=== PATIENT | male | born 1955 | race Caucasian/White ===

== ENCOUNTER 2019-06-14 10:59 | Day surgery (SDC) | payer BC ==
[~2019-06-14] VITALS: Ht 188 cm; Wt 107.5 kg
[2019-06-14] MEDS ORDERED: ULORIC40 MG PO (11:00)
[2019-06-14] MEDS ORDERED: ASPIRIN E.C. 8181 MG PO (11:00)
[2019-06-14] MEDS ORDERED: PRINIVIL10 MG PO (11:01)
[2019-06-14] MEDS ORDERED: GLUCOPHAGE1000 MG PO (11:02)
[2019-06-14] MEDS ORDERED: CRESTOR5 MG PO (11:02)
[2019-06-14] MEDS ORDERED: NEURONTIN300 MG/CAP PO (11:03)
[2019-06-14 11:11] VITALS: BP 140/85; PULSE 89; TEMP 97.2
[2019-06-14 13:02] VITALS: BP 87/56; PULSE 77; TEMP 97.6
[2019-06-14 13:19] VITALS: BP 90/59; PULSE 78
[2019-06-14 13:30] VITALS: BP 99/72; PULSE 78
[2019-06-14 13:45] VITALS: BP 109/74; PULSE 73
[2019-06-14 14:00] VITALS: BP 106/63; PULSE 72
--- NOTE | 2019-06-14 14:14 | NUR ---
PATIENT RECEIVED DISCHARGE INSTRUCTIONS VERBAL AND WRITTEN. QUESTIONS ANSWERED AND PATIENT VERBALIZED UNDERSTANDING. IV DC'D. DRESSING TO RT LEG C,D,AND I. [facility].
--- NOTE | 2019-06-14 14:40 | NUR ---
PATIENT TO ROOM 6 PER CART ACCOMPANIED BY ANESTHESIA AND ANNRN. MONITORS APPLIED. PATIENT ALERT AND TALKING WITH STAFF. RT LEG ELEVATED ON PILLOW. BLOOD PRESSURE LOW. IV FLUIDS OPEN AND INFUSING. WILL CONTINUE TO MONITOR.
--- NOTE | 2019-06-14 14:42 | NUR ---
BLOOD PRESSURE INCREASING. PATIENT OFFERED DRINK AND FOOD. GIVEN WATER AND JELLO. PATIENT DENIES PAIN AND NAUSEA.
--- NOTE | 2019-06-14 14:44 | NUR ---
BLOOD PRESSURE CONTINUES TO IMPROVE. PATIENT REQUEST MORE WATER AND JELLO. PATIENT CONTINUES TO DENY PAIN AND NAUSEA.
--- NOTE | 2019-06-14 14:45 | NUR ---
VSS. PATIENT WATCHING TV. DOES NOT EXPRESS ANY C/O'S.
--- NOTE | 2019-06-14 14:47 | NUR ---
VSS. PATIENT DENIES C/O'S. FAMILY AT BEDSIDE. DISCHARGE INSTRUCTIONS GIVEN VERBAL AND WRITTEN. QUESTIONS ANSWERED AND THEY VOICED UNDERSTANDING.
== END 2019-06-14 14:40 | disposition home or self-care (01) ==
LOC: SDCO 10:59
DX: E11.40 Type 2 diabetes mellitus with diabetic neuropathy, unspecified (principal); E11.621 Type 2 diabetes mellitus with foot ulcer; L97.513 Non-pressure chronic ulcer of other part of right foot with necrosis of muscle; M14.671 Charcot's joint, right ankle and foot; Z79.4 Long term (current) use of insulin; I10 Essential (primary) hypertension; E66.9 Obesity, unspecified
CPT/HCPCS: J0690; J2250; J2405; J2704; J3010; J7030

== ENCOUNTER 2021-05-03 11:22 | Outpatient (CLI) | payer MEDICARE ==
[~2021-05-03] VITALS: Ht 188 cm; Wt 115.6 kg
[~2021-05-03 11:22] MED LIST: ASPIRIN E.C. 8181 MG PO; CRESTOR5 MG PO; GLUCOPHAGE1000 MG PO; NEURONTIN300 MG/CAP PO; PRINIVIL10 MG PO; ULORIC40 MG PO
[2021-05-03 11:42] VITALS: BP 161/89; PULSE 81; TEMP 97.9
[2021-05-03] MEDS ORDERED: TRULICITY1.5 MG/0.5 SQ (12:43)
[2021-05-03] MEDS ORDERED: LANTUS SOLOS100 U/ML SQ (12:43)
--- NOTE | 2021-05-03 13:00 | NUR ---
Pt ambulates out from dept with steady gait. PICC in place, instructions given to pt as well as information to be given to [facility] nursing staff. SHANIQUA Wright has given phone report to [facility].
== END 2021-05-03 13:00 | disposition home or self-care (01) ==
LOC: EUO 11:22
DX: E11.621 Type 2 diabetes mellitus with foot ulcer (principal); L97.422 Non-pressure chronic ulcer of left heel and midfoot with fat layer exposed; L97.412 Non-pressure chronic ulcer of right heel and midfoot with fat layer exposed
CPT/HCPCS: C1751